=== PATIENT | male | born 1985 | race African-American/Black ===

== ENCOUNTER 2017-01-10 14:30 | Emergency (ER) | payer SELFPAY ==
[~2017-01-10] VITALS: Ht 177.8 cm; Wt 150.0 kg
[~2017-01-10 14:30] MED LIST: CIPR500T4 PO; METO25 PO; Z.0.NO CURRENT MEDS
[2017-01-10 14:55] VITALS: BP 174/113; PULSE 108; RESP 18; TEMP 99.2; O2SAT 99
[2017-01-10] MEDS ORDERED: metroNIDAZOLE 500 MG TAB PO ONE (15:30)
[2017-01-10] MEDS ORDERED: cefTRIAXone 250 MG VIAL IM ONE (15:30)
[2017-01-10] MEDS ORDERED: ONDANSETRON ODT 4 MG TAB PO ONE (15:30)
[2017-01-10] MEDS ORDERED: AZITHROMYCIN PWD FOR SUSP 1 GM PACKET PO ONE (15:30)
[2017-01-10] MEDS ORDERED: LIDOCAINE HCL 1% 50 ML VIAL IM ONE (15:30)
[2017-01-10] MEDS ORDERED: METO25TA3 PO (15:31)
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
[2017-01-10 15:41] VITALS: BP 188/101; PULSE 103; RESP 18; O2SAT 98
== END 2017-01-10 16:33 | disposition home or self-care (01) ==
LOC: PHED 14:30
DX: I10 Essential (primary) hypertension (principal); Z20.2 Contact with and (suspected) exposure to infections with a predominantly sexual mode of transmission
CPT/HCPCS: 96372; 99283; J0696

== ENCOUNTER 2017-07-03 08:31 | Emergency (ER) | payer SELFPAY ==
[~2017-07-03] VITALS: Ht 177.8 cm; Wt 154.0 kg
[~2017-07-03 08:31] MED LIST changes: -CIPR500T4 PO; -METO25 PO; +METO25TA3 PO; -Z.0.NO CURRENT MEDS
[2017-07-03 08:40] VITALS: BP 198/111; PULSE 99; RESP 18; TEMP 97.9; O2SAT 98
[2017-07-03] MEDS ORDERED: BUTA1CAP PO (08:57)
[2017-07-03] MEDS ORDERED: METO25TA3 PO (08:57)
--- NOTE | 2017-07-03 08:57 | PD ---
HPI Chief Complaint: Headache Time Seen by Provider: 08:45 Travel History International Travel<30 days: No Contact w/Intl Traveler<30days: No Traveled to known affect area: No History of Present Illness HPI 31-year-old male complains of headache, sore throat, congestion. Patient has history of migraine. Patient also has history hypertension and ran out of his blood pressure medication. Patient does not have a local physician for follow- up. Patient states that headache started today. Patient states that headache is aching headache diffuse over the head. Patient denies any visual change. Patient denies any neck pain. Patient denies any fever chills. Patient complains of sore throat and congestion. Patient denies any chest pain or shortness of breath. Patient denies abdominal pain. Patient denies any nausea vomiting diarrhea. Patient states that headache is typical migraine he has in the past. PFSH Past Medical History Cardiovascular Problems: Yes (HTN) Diminished Hearing: No Headaches: Yes Hypertension: Yes Immunizations Current: Yes Past Surgical History Oral Surgery: Yes (jaw surgery 2014) Social History Alcohol Use: No Tobacco Use: No Substance Use: No Allergies-Medications (Allergen,Severity, Reaction): Coded Allergies: No Known Allergies (Verified , 07/03/17) Reported Meds & Prescriptions Reported Meds & Active Scripts Active Amoxicillin 500 Mg Tab 500 Mg PO TID Fioricet (Ybnqpyxoui-Iodysiwgigsyi-Yuznkwnf) 50-300-40 Mg Cap 1-2 Cap PO Q6H PRN Metoprolol Tartrate 25 Mg Tab 25 Mg PO BID 90 Days Review of Systems General / Constitutional: No: Fever Eyes: No: Visual changes HENT: Positive: Headaches, Sore Throat, Congestion Cardiovascular: No: Chest Pain or Discomfort Respiratory: No: Shortness of Breath Gastrointestinal: No: Abdominal Pain Genitourinary: No: Dysuria Musculoskeletal: No: Pain Skin: No Rash Neurologic: No: Weakness Psychiatric: No: Depression Endocrine: No: Polydipsia Hematologic/Lymphatic: No: Easy Bruising Physical Exam Narrative GENERAL: Well-nourished, well-developed patient. SKIN: Focused skin assessment warm/dry. HEAD: Normocephalic. EYES: No scleral icterus. No injection or drainage. Throat: Mild erythematous with edema. No exudate. NECK: Supple, trachea midline. No JVD. Patient has mild anterior cervical lymphadenopathy. No meningismus CARDIOVASCULAR: Regular rate and rhythm without murmurs, gallops, or rubs. RESPIRATORY: Breath sounds equal bilaterally. No accessory muscle use. GASTROINTESTINAL: Abdomen soft, non-tender, nondistended. MUSCULOSKELETAL: No cyanosis, or edema. BACK: Nontender without obvious deformity. No CVA tenderness. Data Data Last Documented VS Vital Signs Date Time Temp Pulse Resp B/P Pulse Ox O2 Delivery O2 Flow Rate FiO2 07/03/17 08:40 97.9 99 18 198/111 98 Room Air MDM Medical Decision Making Medical Screen Exam Complete: Yes Emergency Medical Condition: Yes Differential Diagnosis Differential diagnosis including migraine headache, tension headache, cluster headache, pharyngitis, URI. Narrative Course 31-year-old male with headache, sore throat. Patient does not want any medication for headache or blood pressure now. Patient requesting prescriptions. Diagnosis Primary Impression: Cephalgia Qualified Code: R51 - Nonintractable episodic headache, unspecified headache type Additional Impressions: Pharyngitis Qualified Code: J02.9 - Pharyngitis, unspecified etiology Uncontrolled hypertension Additional Instructions: Take medications as directed. Tylenol for fever. Follow-up with personal physician. Return if worse. Follow-up with local physician for blood pressure check. Med/Other Pt SpecificInfo: Prescription(s) given Scripts Amoxicillin 500 Mg [id number] Mg PO TID #30 TAB Prov:Espinoza Pozo MD 07/03/17 Jzbcpbruvf-Bbpylbnegssnd-Vijjzsgi (Fioricet)50-300-40 Mg Cap1-2 Cap PO Q6H PRN ( HEADACHE) #30 CAP Ref 0 Prov:Espinoza Pozo MD 07/03/17 Metoprolol Tartrate 25 Mg Tab25 Mg PO BID 90 Days Ref 0 Prov:Espinoza Pozo MD 07/03/17 Disposition: 01 DISCHARGE HOME Condition: Stable Espinoza Pozo MD Jul 03, 2017 08:57
[2017-07-03] MEDS ORDERED: AMOX500T PO (08:58)
== END 2017-07-03 09:55 | disposition home or self-care (01) ==
LOC: PHED 08:31
DX: R51 Headache (principal); J02.9 Acute pharyngitis, unspecified; I10 Essential (primary) hypertension; Z86.69 Personal history of other diseases of the nervous system and sense organs; Z86.79 Personal history of other diseases of the circulatory system
CPT/HCPCS: 99284

== ENCOUNTER 2017-12-26 09:39 | Emergency (ER) | payer SELFPAY ==
[~2017-12-26] VITALS: Ht 175.3 cm; Wt 160.0 kg
[~2017-12-26 09:39] MED LIST changes: +AMOX500T PO; +BUTA1CAP PO; +CEPH-459 PO; +HYDR-3516 PO; +WALKER WHEELS/F1 MIS
[2017-12-26 09:45] VITALS: BP 196/138; PULSE 121; RESP 16; TEMP 98.9; O2SAT 98
[2017-12-26 09:47] VITALS: BP 157/103; RESP 16
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
[2017-12-26] MEDS ORDERED: methylPREDNISolone SOD SUCC 125 MG/2 ML VIAL IV PUSH ONE (10:15)
[2017-12-26] MEDS ORDERED: FAMOTIDINE 20 MG/2 ML VIAL IV PUSH ONE (10:15)
[2017-12-26] MEDS ORDERED: diphenhydrAMINE HCL 50 MG/ML VIAL IVP ONE (10:15)
[2017-12-26] MEDS ORDERED: BENA25CA4 PO (11:05)
[2017-12-26] MEDS ORDERED: ZANT150T2 PO (11:05)
[2017-12-26] MEDS ORDERED: PRED20 PO (11:05)
[2017-12-26 11:25] VITALS: PULSE 111; RESP 22; O2SAT 98
== END 2017-12-26 11:35 | disposition home or self-care (01) ==
LOC: NEPK 09:39
DX: T78.40XA Allergy, unspecified, initial encounter (principal); I10 Essential (primary) hypertension; F17.210 Nicotine dependence, cigarettes, uncomplicated
CPT/HCPCS: 96374; 96375; 99283; J1200; J2930

== ENCOUNTER 2017-12-27 21:42 | Emergency (ER) | payer SELFPAY ==
[~2017-12-27] VITALS: Ht 175.3 cm; Wt 155.0 kg
[~2017-12-27 21:42] MED LIST changes: -AMOX500T PO; +BENA25CA4 PO; -BUTA1CAP PO; -CEPH-459 PO; -HYDR-3516 PO; +PRED20 PO; -WALKER WHEELS/F1 MIS; +ZANT150T2 PO
[2017-12-27 21:44] VITALS: BP 173/95; PULSE 137; RESP 20; TEMP 99.4; O2SAT 96
--- NOTE | 2017-12-27 22:11 | PD ---
HPI Chief Complaint: Allergic/Adverse Reaction Time Seen by Provider: 21:52 Travel History International Travel<30 days: No Contact w/Intl Traveler<30days: No Traveled to known affect area: No History of Present Illness HPI This patient complains of allergic reaction. He was seen here yesterday for the same. He complains of itching rash and hives on his torso and arms. Complains of swelling of both hands. Medications he takes of the ones prescribed yesterday for allergic reaction. Severity is moderate. No alleviating factors. Duration 2 days. Symptoms wax and wane. No exacerbating factors. PFSH Past Medical History Cardiovascular Problems: Yes Diminished Hearing: No Headaches: Yes Hypertension: Yes Immunizations Current: Yes Past Surgical History Oral Surgery: Yes (jaw surgery 2014) Social History Alcohol Use: No Tobacco Use: Yes (3 cigarettes daily) Substance Use: No Allergies-Medications (Allergen,Severity, Reaction): Coded Allergies: No Known Allergies (Verified Adverse Reaction, Unknown, 12/27/17) Reported Meds & Prescriptions Reported Meds & Active Scripts Active Zantac (Ranitidine HCl) 150 Mg Tab 150 Mg PO BID 5 Days Prednisone 20 Mg Tab 40 Mg PO DAILY 5 Days Benadryl Allergy (Diphenhydramine HCl) 25 Mg Cap 1-2 Cap PO Q6HR PRN Metoprolol Tartrate 25 Mg Tab 25 Mg PO BID 90 Days Review of Systems General / Constitutional: No: Fever Eyes: No: Visual changes HENT: No: Headaches Cardiovascular: Positive: Tachycardia, No: Chest Pain or Discomfort Respiratory: No: Shortness of Breath Gastrointestinal: No: Abdominal Pain Genitourinary: No: Dysuria Musculoskeletal: No: Pain Skin: Positive Rash, Positive Itching, Positive Hives Neurologic: No: Weakness Psychiatric: No: Depression Endocrine: No: Polydipsia Hematologic/Lymphatic: No: Easy Bruising Physical Exam Narrative GENERAL: Well-nourished, well-developed patient with tachycardia and urticaria . SKIN: Focused skin assessment reveals urticarial lesions on both arms and trunk. Skin is Warm and dry. HEAD: Atraumatic. Normocephalic. EYES: Pupils equal and round. No scleral icterus. No injection or drainage. ENT: No nasal bleeding or discharge. Mucous membranes pink and moist. No submental induration. No swelling of lips or tongue or uvula. NECK: Trachea midline. No JVD. CARDIOVASCULAR: Regular rate and rhythm. No murmur appreciated. Tachycardic at 140 RESPIRATORY: No accessory muscle use. Clear to auscultation. Breath sounds equal bilaterally. GASTROINTESTINAL: Abdomen soft, non-tender, nondistended. Hepatic and splenic margins not palpable. MUSCULOSKELETAL: No obvious deformities. No clubbing. No cyanosis. There is some symmetric swelling of both hands NEUROLOGICAL: Awake and alert. No obvious cranial nerve deficits. Motor grossly within normal limits. Normal speech. PSYCHIATRIC: Appropriate mood and affect; insight and judgment normal. Data Data Last Documented VS Vital Signs Date Time Temp Pulse Resp B/P (MAP) Pulse Ox O2 Delivery O2 Flow Rate FiO2 12/27/17 22:07 130 18 97 Room Air 12/27/17 21:44 99.4 173/95 (121) Orders Orders Iv Access Insert/Monitor (12/27/17 22:04) Internet Marketing Strategist / Telemetry [email or web address] (12/27/17 22:04) Electrocardiogram (12/27/17 ) Sodium Chlor 0.9% 1000 Ml Inj (Ns 1000 M (12/27/17 22:15) Complete Blood Count With Diff (12/27/17 22:04) Comprehensive Metabolic Panel (12/27/17 22:04) Thyroid Stimulating Hormone (12/27/17 22:04) Methylprednisolone So Succ Inj (Solumedr (12/27/17 22:15) Diphenhydramine Inj (Benadryl Inj) (12/27/17 22:15) Famotidine Inj (Pepcid Inj) (12/27/17 22:15) Labs Laboratory Tests Test 12/27/17 22:00 White Blood Count 12.1 TH/MM3 Red Blood Count 4.92 MIL/MM3 Hemoglobin 14.6 GM/DL Hematocrit 43.7 % Mean Corpuscular Volume 88.8 FL Mean Corpuscular Hemoglobin 29.7 PG Mean Corpuscular Hemoglobin Concent 33.4 % Red Cell Distribution Width 13.5 % Platelet Count 415 TH/MM3 Mean Platelet Volume 8.7 FL Neutrophils (%) (Auto) 74.7 % Lymphocytes (%) (Auto) 18.4 % Monocytes (%) (Auto) 2.3 % Eosinophils (%) (Auto) 0.2 % Basophils (%) (Auto) 4.4 % Neutrophils # (Auto) 9.1 TH/MM3 Lymphocytes # (Auto) 2.2 TH/MM3 Monocytes # (Auto) 0.3 TH/MM3 Eosinophils # (Auto) 0.0 TH/MM3 Basophils # (Auto) 0.5 TH/MM3 CBC Comment DIFF FINAL Differential Comment Blood Urea Nitrogen 16 MG/DL Creatinine 1.30 MG/DL Random Glucose 125 MG/DL Total Protein 7.3 GM/DL Albumin 3.3 GM/DL Calcium Level 8.0 MG/DL Alkaline Phosphatase 72 U/L Aspartate Amino Transf (AST/SGOT) 30 U/L Alanine Aminotransferase (ALT/SGPT) 40 U/L Total Bilirubin 0.7 MG/DL Sodium Level 136 MEQ/L Potassium Level 3.6 MEQ/L Chloride Level 103 MEQ/L Carbon Dioxide Level 25.3 MEQ/L Anion Gap 8 MEQ/L Estimat Glomerular Filtration Rate 78 ML/MIN Thyroid Stimulating Hormone 3rd Gen 1.030 uIU/ML MDM Medical Decision Making Medical Screen Exam Complete: Yes Emergency Medical Condition: Yes Medical Record Reviewed: Yes Differential Diagnosis Allergic reaction, anaphylaxis, Keating-Luis syndrome Narrative Course I have reviewed the patient's electronic medical record. Reviewed her visit from yesterday as well as his recent admit for [facility] Patient's presentation is not entirely clear at onset. He has some features of allergic reaction with urticaria and itching also extreme tachycardia of 140 Extended cardiac monitoring reveals sinus tachycardia 1:30 to 140 I reviewed his EKG I gave him IV soluMedrol and IV Pepcid and IV Benadryl. Holding off on epinephrine given his heart rate of 140 and there does not seem to be airway involvement at this time Will reassess them frequently. cbc is normal tsh is normal cmp is normal 2254: Reassessment reveals the patient is clinically improved. His tachycardia has gone down from 140-115 at this time A lot of his hives have resolved. However I believe it is too early for discharge as he has not been here that long and I wanted to observe him longer. Therefore I will have Dr. Glover reassess in one hour to make sure he continues to improve. Diagnosis Primary Impression: Allergic reaction Qualified Codes: T78.40XA - Allergy, unspecified, initial encounter Additional Impression: Sinus tachycardia Arias Lee MD Dec 27, 2017 22:11
[2017-12-27] MEDS ORDERED: methylPREDNISolone SOD SUCC 125 MG/2 ML VIAL IV PUSH ONE (22:15)
[2017-12-27] MEDS ORDERED: diphenhydrAMINE HCL 50 MG/ML VIAL IV PUSH ONE (22:15)
[2017-12-27] MEDS ORDERED: FAMOTIDINE 20 MG/2 ML VIAL IV PUSH SCH (22:15)
[2017-12-27] MEDS ORDERED: SODIUM CHLOR 0.9% 1000 ML INJ 1,000 ML IV ONE (22:15)
[2017-12-27 22:27] LABS: AUTOMATED NEUTROPHIL # 9.1 TH/MM3 (1.8-7.7); BASOPHIL # 0.5 TH/MM3 (0-0.2); BASOPHIL % 4.4 % (0.0-2.0); EOSINOPHIL % 0.2 % (0.0-4.0); HEMATOCRIT 43.7 % (39.0-51.0); HEMOGLOBIN 14.6 GM/DL (13.0-17.0); LYMPH % 18.4 % (9.0-44.0); LYMPHOCYTE # 2.2 TH/MM3 (1.0-4.8); MEAN CELL VOLUME 88.8 FL (80.0-100.0); MEAN CORPUSCULAR HEMOGLOBIN 29.7 PG (27.0-34.0); MEAN CORPUSCULAR HGB CONC 33.4 % (32.0-36.0); MEAN PLATELET VOLUME 8.7 FL (7.0-11.0); MONO % 2.3 % (0.0-8.0); MONOCYTE # 0.3 TH/MM3 (0-0.9); NEUT % 74.7 % (16.0-70.0); PLATELET COUNT 415 TH/MM3 (150-450); RED BLOOD COUNT 4.92 MIL/MM3 (4.50-5.90); RED CELL DISTRIBUTION WIDTH 13.5 % (11.6-17.2); WHITE BLOOD COUNT 12.1 TH/MM3 (4.0-11.0)
[2017-12-27 22:33] LABS: CHLORIDE 103 MEQ/L (98-107); SODIUM (NA) 136 MEQ/L (136-145)
[2017-12-27 22:36] LABS: ALBUMIN 3.3 GM/DL (3.4-5.0); BICARBONATE 25.3 MEQ/L (21.0-32.0); GLUCOSE,RANDOM 125 MG/DL (74-106)
[2017-12-27 22:37] LABS: BLOOD UREA NITROGEN 16 MG/DL (7-18)
[2017-12-27 22:39] LABS: ALT (GPT) 40 U/L (12-78); AST (GOT) 30 U/L (15-37)
[2017-12-27 22:40] LABS: GLOMERULAR FILTRATION RATE 78 ML/MIN (>89)
[2017-12-27 22:41] LABS: TOTAL BILIRUBIN ADULT 0.7 MG/DL (0.2-1.0); TOTAL PROTEIN 7.3 GM/DL (6.4-8.2)
[2017-12-27 22:42] LABS: ALKALINE PHOSPHATASE 72 U/L (45-117)
[2017-12-27 23:35] VITALS: BP 153/89; PULSE 112; RESP 18; O2SAT 97
--- NOTE | 2017-12-28 00:11 | PD ---
Physical Exam Time Seen by Provider: 00:08 Narrative The patient is a 32-year-old male that was here for allergic reaction yesterday and was given Zantac, prednisone and Benadryl. He had some hand swelling and some trouble swallowing and came in today but this has resolved at this time. He feels fine and wants to go home. Dr. Lee saw the patient earlier tonight and wanted me to check him at this time. Data Data Last Documented VS Vital Signs Date Time Temp Pulse Resp B/P (MAP) Pulse Ox O2 Delivery O2 Flow Rate FiO2 12/27/17 23:35 112 18 153/89 (110) 97 Room Air 12/27/17 21:44 99.4 Orders Orders Iv Access Insert/Monitor (12/27/17 22:04) Chlorine Operator / Telemetry [email or web address] (12/27/17 22:04) Electrocardiogram (12/27/17 ) Sodium Chlor 0.9% 1000 Ml Inj (Ns 1000 M (12/27/17 22:15) Complete Blood Count With Diff (12/27/17 22:04) Comprehensive Metabolic Panel (12/27/17 22:04) Thyroid Stimulating Hormone (12/27/17 22:04) Methylprednisolone So Succ Inj (Solumedr (12/27/17 22:15) Diphenhydramine Inj (Benadryl Inj) (12/27/17 22:15) Famotidine Inj (Pepcid Inj) (12/27/17 22:15) Labs Laboratory Tests Test 12/27/17 22:00 White Blood Count 12.1 TH/MM3 Red Blood Count 4.92 MIL/MM3 Hemoglobin 14.6 GM/DL Hematocrit 43.7 % Mean Corpuscular Volume 88.8 FL Mean Corpuscular Hemoglobin 29.7 PG Mean Corpuscular Hemoglobin Concent 33.4 % Red Cell Distribution Width 13.5 % Platelet Count 415 TH/MM3 Mean Platelet Volume 8.7 FL Neutrophils (%) (Auto) 74.7 % Lymphocytes (%) (Auto) 18.4 % Monocytes (%) (Auto) 2.3 % Eosinophils (%) (Auto) 0.2 % Basophils (%) (Auto) 4.4 % Neutrophils # (Auto) 9.1 TH/MM3 Lymphocytes # (Auto) 2.2 TH/MM3 Monocytes # (Auto) 0.3 TH/MM3 Eosinophils # (Auto) 0.0 TH/MM3 Basophils # (Auto) 0.5 TH/MM3 CBC Comment DIFF FINAL Differential Comment Blood Urea Nitrogen 16 MG/DL Creatinine 1.30 MG/DL Random Glucose 125 MG/DL Total Protein 7.3 GM/DL Albumin 3.3 GM/DL Calcium Level 8.0 MG/DL Alkaline Phosphatase 72 U/L Aspartate Amino Transf (AST/SGOT) 30 U/L Alanine Aminotransferase (ALT/SGPT) 40 U/L Total Bilirubin 0.7 MG/DL Sodium Level 136 MEQ/L Potassium Level 3.6 MEQ/L Chloride Level 103 MEQ/L Carbon Dioxide Level 25.3 MEQ/L Anion Gap 8 MEQ/L Estimat Glomerular Filtration Rate 78 ML/MIN Thyroid Stimulating Hormone 3rd Gen 1.030 uIU/ML [facility] Medical Record Reviewed: Yes Supervised Visit with JDUD: No Differential Diagnosis Urgent reaction, cellulitis, airway obstruction Narrative Course Patient feels fine without wheezing and without any stridor or any evidence of airway obstruction. The swelling and rash on the hand and the trouble swallowing is all resolved. His tachycardia is also resolved. Diagnosis Primary Impression: Allergic reaction Qualified Codes: T78.40XA - Allergy, unspecified, initial encounter Additional Impression: Sinus tachycardia Additional Instruction: You are welcome to return to emergency department if you have more problems with this but you are good to go home at this time. Disposition: 01 DISCHARGE HOME Condition: Stable Louis Glover MD Dec 28, 2017 00:11
--- NOTE | 2017-12-28 23:41 | EKG ---
Date Performed: 12/27/2017 Time Performed: 22:13:50 PTAGE: 32 years EKG: SINUS TACHYCARDIA WITH SHORT CT INTERVAL NONSPECIFIC T-WAVE ABNORMALITY ABNORMAL RHYTHM ECG PREVIOUS TRACING : 11/30/2015 21.15 Compared to prior tracing, now in sinus tachycardia DOCTOR: Bautista Wesley Interpretating Date/Time 12/28/2017 23:41:02
== END 2017-12-28 00:30 | disposition home or self-care (01) ==
LOC: PHED 21:42
DX: R21 Rash and other nonspecific skin eruption (principal); R22.33 Localized swelling, mass and lump, upper limb, bilateral; T78.40XA Allergy, unspecified, initial encounter; R00.0 Tachycardia, unspecified; I10 Essential (primary) hypertension; Z72.0 Tobacco use
CPT/HCPCS: 80053; 84443; 85025; 93005; 96361; 96374; 96375; 99284; J1200; J2930; J7030

== ENCOUNTER 2018-01-01 01:25 | Observation (INO) | payer SELFPAY ==
[~2018-01-01] VITALS: Ht 175.3 cm; Wt 140.0 kg
[2018-01-01] VITALS (9 sets, daily range): BP systolic 148–202; BP diastolic 84–122; PULSE 87–122; RESP 16–24; TEMP 97.5–98.6; O2SAT 96–100
[2018-01-01] MEDS ORDERED: ASPIRIN 81 MG CHEW TAB PO ONE (02:00)
[2018-01-01] MEDS ORDERED: SODIUM CHLORIDE 0.9% FLUSH 10 ML FLUSH IVF PRN (02:00)
[2018-01-01] MEDS ORDERED: SODIUM CHLORID 0.9% 500 ML INJ 500 ML IV ONE (02:00)
--- NOTE | 2018-01-01 02:32 | RADRPT ---
EXAM DATE/TIME: 01/01/2018 02:21 [place] COMPARISON: CHEST SINGLE AP, December 17, 2017, 3:07. INDICATIONS : Chest pains. MEDICAL HISTORY : None. SURGICAL HISTORY : None. ENCOUNTER: Initial ACUITY: 1 day PAIN SCORE: 0/10 LOCATION: Bilateral chest FINDINGS: Cardia megaly. Clear lungs. Osseous structures are intact. CONCLUSION: No acute disease. Bossman Wong MD on January 01, 2018 at 2:29 Board Certified Radiologist. This report was verified electronically.
[2018-01-01 02:49] LABS: AUTOMATED NEUTROPHIL # 6.7 TH/MM3 (1.8-7.7); BASOPHIL # 0.1 TH/MM3 (0-0.2); BASOPHIL % 0.9 % (0.0-2.0); EOSINOPHIL % 0.4 % (0.0-4.0); HEMATOCRIT 35.1 % (39.0-51.0); HEMOGLOBIN 12.7 GM/DL (13.0-17.0); LYMPH % 26.7 % (9.0-44.0); LYMPHOCYTE # 2.7 TH/MM3 (1.0-4.8); MEAN CORPUSCULAR HEMOGLOBIN 31.9 PG (27.0-34.0); MEAN PLATELET VOLUME 8.2 FL (7.0-11.0); MONO % 4.5 % (0.0-8.0); MONOCYTE # 0.4 TH/MM3 (0-0.9); NEUT % 67.5 % (16.0-70.0); PLATELET COUNT 394 TH/MM3 (150-450); RED BLOOD COUNT 3.99 MIL/MM3 (4.50-5.90); RED CELL DISTRIBUTION WIDTH 14.1 % (11.6-17.2)
[2018-01-01 02:53] LABS: MEAN CORPUSCULAR HGB CONC 36.3 % (32.0-36.0)
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
[2018-01-01 03:01] LABS: ALBUMIN 2.7 GM/DL (3.4-5.0); ALT (GPT) 52 U/L (12-78); AST (GOT) 29 U/L (15-37); BICARBONATE 28.4 MEQ/L (21.0-32.0); BLOOD UREA NITROGEN 11 MG/DL (7-18); CALCIUM 7.7 MG/DL (8.5-10.1); CHLORIDE 104 MEQ/L (98-107); GLOMERULAR FILTRATION RATE 119 ML/MIN (>89); GLUCOSE,RANDOM 107 MG/DL (74-106); MAGNESIUM 2.1 MG/DL (1.5-2.5); SODIUM (NA) 140 MEQ/L (136-145)
[2018-01-01 03:06] LABS: ALKALINE PHOSPHATASE 66 U/L (45-117); TOTAL BILIRUBIN ADULT 0.6 MG/DL (0.2-1.0); TOTAL PROTEIN 6.7 GM/DL (6.4-8.2); TROPONIN I LESS THAN 0.02 NG/ML (0.02-0.05)
[2018-01-01] MEDS ORDERED: methylPREDNISolone SOD SUCC 125 MG/2 ML VIAL IV PUSH ONE (03:15)
[2018-01-01] MEDS ORDERED: diphenhydrAMINE HCL 50 MG/ML VIAL IV PUSH ONE (03:15)
[2018-01-01] MEDS ORDERED: FAMOTIDINE 20 MG/2 ML VIAL IV PUSH SCH (03:15)
[2018-01-01 03:43] LABS: PROTHROMBIN TIME - PATIENT 10.2 SEC (9.8-11.6)
[2018-01-01 03:47] LABS: D-DIMER 11.66 MG/L FEU (0.00-0.50)
[2018-01-01] MEDS ORDERED: IOHEXOL 350 MG/ML 10 ML VIAL (for RAD DIAG) IVCONTRAST ONE (04:32)
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
[2018-01-01] MEDS ORDERED: diphenhydrAMINE HCL 50 MG/ML VIAL IV PUSH PRN (04:45)
[2018-01-01] MEDS ORDERED: methylPREDNISolone SOD SUCC 40 MG/1 ML VIAL IV PUSH PRN (04:45)
[2018-01-01] MEDS ORDERED: SODIUM CHLORIDE 0.9% FLUSH 10 ML FLUSH IV FLUSH PRN (04:45)
[2018-01-01] MEDS ORDERED: LABETALOL HCL 100 MG/20 ML VIAL IV PUSH ONE (04:45)
[2018-01-01] MEDS ORDERED: NALOXONE HCL 0.4 MG/ML AMP IV PUSH PRN (04:45)
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
[2018-01-01] MEDS ORDERED: POTASSIUM CHLORIDE 25 MEQ EFFERVESCENT TAB PO ONE (06:30)
[2018-01-01] MEDS ORDERED: METOPROLOL TARTRATE 25 MG TAB PO SCH (09:00)
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
[2018-01-01] MEDS: SODIUM CHLORIDE 0.9% FLUSH 10 ML FLUSH IV FLUSH SCH ×2 (10:19→20:46)
[2018-01-01 11:01] LABS: BACTERIA, URINE RARE /hpf; BILIRUBIN, URINE NEG (NEG); BLOOD, URINE NEG (NEG); GLUCOSE,URINE NEG (NEG); KETONE, URINE NEG (NEG); NITRITE,URINE NEG (NEG); PH, URINE 6.5 (5.0-8.5); SQUAMOUS EPITHELIAL CELL URINE 1 /hpf (0-5); URINE COLOR YELLOW (YELLW/STRAW); URINE LEUKOCYTE ESTERASE LARGE (NEG)
--- NOTE | 2018-01-01 19:53 | EKG ---
Date Performed: 01/01/2018 Time Performed: 11:31:56 PTAGE: 32 years EKG: Sinus rhythm NONSPECIFIC T-WAVE ABNORMALITY BORDERLINE ECG INTERPRETATION BASED ON A DEFAULT AGE OF 40 YEARS PREVIOUS TRACING : 01/01/2018 01.43 Since the prior tracing, there has been no significan t change DOCTOR: Nahum Hunter Interpretating Date/Time 01/01/2018 19:52:32
[2018-01-01] MEDS: METOPROLOL TARTRATE 25 MG TAB PO SCH (20:46)
--- NOTE | 2018-01-01 21:20 | EKG ---
Date Performed: 01/01/2018 Time Performed: 01:43:50 PTAGE: 32 years EKG: SINUS TACHYCARDIA NONSPECIFIC T-WAVE ABNORMALITY ABNORMAL RHYTHM ECG NO PREVIOUS TRACING DOCTOR: Nahum Hunter Interpretating Date/Time 01/01/2018 21:19:08
[2018-01-02 04:01] VITALS: BP 181/106; PULSE 87; RESP 16; TEMP 98; O2SAT 96
[2018-01-02 07:01] LABS: AUTOMATED NEUTROPHIL # 7.7 TH/MM3 (1.8-7.7); BASOPHIL % 0.3 % (0.0-2.0); EOSINOPHIL # 0.1 TH/MM3 (0-0.4); HEMATOCRIT 40.6 % (39.0-51.0); HEMOGLOBIN 13.8 GM/DL (13.0-17.0); LYMPH % 28.1 % (9.0-44.0); LYMPHOCYTE # 3.4 TH/MM3 (1.0-4.8); MEAN CORPUSCULAR HEMOGLOBIN 30.4 PG (27.0-34.0); MEAN CORPUSCULAR HGB CONC 33.8 % (32.0-36.0); MEAN PLATELET VOLUME 7.9 FL (7.0-11.0); MONOCYTE # 0.7 TH/MM3 (0-0.9); NEUT % 64.6 % (16.0-70.0); PLATELET COUNT 491 TH/MM3 (150-450); RED BLOOD COUNT 4.52 MIL/MM3 (4.50-5.90); RED CELL DISTRIBUTION WIDTH 14.2 % (11.6-17.2); WHITE BLOOD COUNT 11.9 TH/MM3 (4.0-11.0)
[2018-01-02 07:28] LABS: BICARBONATE 27.2 MEQ/L (21.0-32.0); CALCIUM 8.5 MG/DL (8.5-10.1); CREATININE 0.83 MG/DL (0.60-1.30)
[2018-01-02] MEDS: METOPROLOL TARTRATE 25 MG TAB PO SCH ×2 (08:16→20:22)
[2018-01-02] MEDS: SODIUM CHLORIDE 0.9% FLUSH 10 ML FLUSH IV FLUSH SCH ×2 (08:16→20:23)
[2018-01-02 09:02] VITALS: BP 165/89; PULSE 102; RESP 20; TEMP 98.3; O2SAT 96
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
[2018-01-02] MEDS ORDERED: amLODIPine BESYLATE 5 MG TAB PO SCH (09:30)
[2018-01-02] MEDS ORDERED: cefTRIAXone INJ 1,000 MG in SODIUM CHLORIDE 0.9% INJ 100 ML IV SCH (10:00)
[2018-01-02 12:01] VITALS: BP 146/85; PULSE 100; RESP 22; TEMP 98; O2SAT 97
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
[2018-01-02 16:04] VITALS: BP 162/98; PULSE 84; RESP 20; TEMP 98; O2SAT 95
[2018-01-02] MEDS ORDERED: predniSONE 20 MG TAB PO ONE (16:30)
[2018-01-02] MEDS: ACYCLOVIR 5% OINT 5 APPLIC/5 GM TUBE TOPICAL SCH ×2 (18:00→22:00)
[2018-01-02 19:09] VITALS: BP 167/76; PULSE 100; RESP 16; TEMP 98.5; O2SAT 98
[2018-01-02 23:29] VITALS: BP 205/105; PULSE 96; RESP 16; TEMP 98.2; O2SAT 98
[2018-01-03] MEDS: cloNIDine HCL 0.1 MG TAB PO PRN ×2 (00:09→06:25)
[2018-01-03 03:48] VITALS: BP 184/107; PULSE 91; RESP 14; TEMP 98; O2SAT 99
[2018-01-03] MEDS: ACYCLOVIR 5% OINT 5 APPLIC/5 GM TUBE TOPICAL SCH (06:00)
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
[2018-01-03 08:17] VITALS: BP 155/92; PULSE 98; RESP 18; TEMP 97.8; O2SAT 96
[2018-01-03] MEDS ORDERED: METOPROLOL TARTRATE 25 MG TAB PO SCH (09:00)
[2018-01-03] MEDS ORDERED: predniSONE 20 MG TAB PO SCH (09:00)
[2018-01-03] MEDS ORDERED: AMLO10 PO (09:05)
[2018-01-03] MEDS ORDERED: PRED20 PO (09:05)
[2018-01-03] MEDS ORDERED: METO25TA3 PO (09:05)
[2018-01-03] MEDS: SODIUM CHLORIDE 0.9% FLUSH 10 ML FLUSH IV FLUSH SCH (09:05)
[2018-01-03] MEDS ORDERED: ACYCLOVIR 5% TOPICAL (09:05)
--- NOTE | 2018-01-03 09:06 | HHI.DCPOC ---
Discharge Care Plan Diagnosis: (1) High blood pressure (2) Uncontrolled hypertension (3) Allergic reaction Goals to Promote Your Health * To prevent worsening of your condition and complications * To maintain your health at the optimal level Directions to Meet Your Goals Take your medications as prescribed Follow your dietary instruction Follow activity as directed Keep your appointments as scheduled Take your immunizations and boosters as scheduled If your symptoms worsen call your PCP, if no PCP go to Urgent Care Center or Emergency Room Smoking is Dangerous to Your Health. Avoid second hand smoke Call the 24-hour hour crisis hotline for domestic abuse at Kathy Rawls Jan 03, 2018 09:06
[2018-01-03 09:48] LABS: AUTOMATED NEUTROPHIL # 11.5 TH/MM3 (1.8-7.7); BASOPHIL # 0.1 TH/MM3 (0-0.2); BASOPHIL % 0.5 % (0.0-2.0); EOSINOPHIL % 0.3 % (0.0-4.0); HEMOGLOBIN 14.1 GM/DL (13.0-17.0); LYMPH % 13.1 % (9.0-44.0); LYMPHOCYTE # 1.8 TH/MM3 (1.0-4.8); MEAN CORPUSCULAR HEMOGLOBIN 30.5 PG (27.0-34.0); MEAN CORPUSCULAR HGB CONC 34.3 % (32.0-36.0); MEAN PLATELET VOLUME 7.6 FL (7.0-11.0); MONO % 3.4 % (0.0-8.0); MONOCYTE # 0.5 TH/MM3 (0-0.9); NEUT % 82.7 % (16.0-70.0); PLATELET COUNT 486 TH/MM3 (150-450); RED BLOOD COUNT 4.61 MIL/MM3 (4.50-5.90); WHITE BLOOD COUNT 13.9 TH/MM3 (4.0-11.0)
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
[2018-01-03 11:10] VITALS: BP 143/87; PULSE 82; RESP 18; TEMP 98
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
[2018-01-06 08:29] LABS: RENIN 2.2 ng/mL/h
== END 2018-01-03 13:11 | disposition home or self-care (01) ==
LOC: NEPE 01:25 → NEDA 04:26 → NEDH 11:41 → NEPHCDU 14:33
PROVIDERS: ADMIT Internal Medicine; ATTEND Internal Medicine
DX: T78.40XA Allergy, unspecified, initial encounter (principal); T78.3XXA Angioneurotic edema, initial encounter; R07.9 Chest pain, unspecified; R79.89 Other specified abnormal findings of blood chemistry; R22.0 Localized swelling, mass and lump, head; L50.9 Urticaria, unspecified; R19.7 Diarrhea, unspecified; R30.0 Dysuria; R09.81 Nasal congestion; R68.83 Chills (without fever); R05 Cough; R00.0 Tachycardia, unspecified; T38.0X5A Adverse effect of glucocorticoids and synthetic analogues, initial encounter; D72.829 Elevated white blood cell count, unspecified; R13.10 Dysphagia, unspecified; R06.00 Dyspnea, unspecified; J34.1 Cyst and mucocele of nose and nasal sinus; E87.6 Hypokalemia; I10 Essential (primary) hypertension; G47.30 Sleep apnea, unspecified; F17.210 Nicotine dependence, cigarettes, uncomplicated; Z79.899 Other long term (current) drug therapy; F12.10 Cannabis abuse, uncomplicated; Z91.14 Patient's other noncompliance with medication regimen
CPT/HCPCS: 70490; 71045; 71275; 80048; 80053; 80307; 81001; 82088; 82533; 82550; 82552; 83690; 83735; 83880; 84244; 84443; 84484; 85025; 85379; 85610; 85730; 87086; 87491; 87493; 87591; 93005; 96361; 96374; 96375; 97161; 99285; G0378; G8987; G8988; G8989; J1200; J2920; J2930; J7040; J7512; Q9967